=== PATIENT | female | born 1960 | race Caucasian/White ===

== ENCOUNTER 2022-05-07 16:22 | Emergency (ER) | payer BC ==
[~2022-05-07] VITALS: Ht 177.8 cm; Wt 78.0 kg
[2022-05-07 16:43] VITALS: BP 171/96
== END 2022-05-07 18:19 | disposition left against medical advice (07) ==
LOC: ER 16:22
DX: F41.9 Anxiety disorder, unspecified (principal); Z53.21 Procedure and treatment not carried out due to patient leaving prior to being seen by health care provider